=== PATIENT | female | born 1970 | race African-American/Black ===

== ENCOUNTER 2021-07-23 10:56 | Outpatient (CLI) | payer OTHER | END 2021-07-23 11:03 | disposition home or self-care (01) | LOC: RAD 10:56 | PROVIDERS: ATTEND Physical Medicine & Rehabilitation | DX: M17.11 Unilateral primary osteoarthritis, right knee (principal); M17.12 Unilateral primary osteoarthritis, left knee; M25.561 Pain in right knee; M25.562 Pain in left knee; M25.821 Other specified joint disorders, right elbow; S50.01XA Contusion of right elbow, initial encounter ==